=== PATIENT | male | born 1985 | race Caucasian/White ===

== ENCOUNTER 2023-12-09 08:04 | Emergency (ER) | payer OTHER, MEDICAID ==
[~2023-12-09] VITALS: Ht 170.2 cm; Wt 88.5 kg
[2023-12-09 08:29] VITALS: BP 142/89; PULSE 67; RESP 17; TEMP 97.9; O2SAT 98
[2023-12-09] MEDS: FLUORESCEIN OPTH STRIP 1 MG OP ONE (10:10)
[2023-12-09] MEDS: TETRACAINE HCL/PF 0.5% OPTH 4 ML BTL OP ONE (10:10)
[2023-12-09] MEDS ORDERED: KETO5DRO68 OP (10:57)
[2023-12-09] MEDS ORDERED: LEVO5DRO BOTH EYES (11:02)
== END 2023-12-09 11:22 | disposition home or self-care (01) ==
LOC: MED 08:04
DX: H10.9 Unspecified conjunctivitis (principal); Z79.899 Other long term (current) drug therapy
CPT/HCPCS: 99283

== ENCOUNTER 2023-12-12 07:39 | Emergency (ER) | payer OTHER, MEDICAID ==
[~2023-12-12] VITALS: Ht 170.2 cm; Wt 91.4 kg
[~2023-12-12 07:39] MED LIST: KETO5DRO68 OP; LEVO5DRO BOTH EYES
[2023-12-12 07:45] VITALS: BP 130/80; PULSE 79; RESP 18; TEMP 97.9; O2SAT 99
[2023-12-12] MEDS ORDERED: PRED20TA5 PO (08:18)
[2023-12-12] MEDS ORDERED: CEPH-588 PO (08:18)
== END 2023-12-12 08:28 | disposition home or self-care (01) ==
LOC: MED 07:39
DX: H10.9 Unspecified conjunctivitis (principal); H00.035 Abscess of left lower eyelid; H00.034 Abscess of left upper eyelid; H00.031 Abscess of right upper eyelid; H00.032 Abscess of right lower eyelid; Z79.899 Other long term (current) drug therapy
CPT/HCPCS: 99283